=== PATIENT | male | born 1955 | race Caucasian/White ===

== ENCOUNTER 2021-01-04 18:21 | Emergency (ER) | payer MEDICARE, OTHER ==
[2021-01-04] MEDS ORDERED: Sodium Chloride 0.9% 10 ML Syringe FLUSH PRN (18:26)
[2021-01-04] MEDS ORDERED: Lactated Ringers 1,000 ML IV SCH (18:30)
--- NOTE | 2021-01-04 19:20 | EDM.PDOC ---
ED HPI GENERAL MEDICAL PROBLEM - General Chief Complaint: Possible Sepsis Stated Complaint: MEDICAL Time Seen by Provider: 01/04/21 18:25 Source of Information: Reports: Patient, Family History Limitations: Reports: Respiratory Distress - History of Present Illness INITIAL COMMENTS - FREE TEXT/NARRATIVE: Whit is a 65-year-old male presenting to the ED for evaluation of respiratory failure, tachycardia, and cyanosis. The patient was recently diagnosed 2 weeks ago with a mass in his neck extending into the chest and back by Dr. Gambino at the [facility] He underwent a biopsy on Wednesday of the mass at [facility] showing squamous cell carcinoma and the mass in the right upper lung. The patient's son went to visit him today and found him sitting in a racheal ir blue from his chest to his head. The patient was in respiratory distress. The son loaded him in the car and drove immediately to the hospital. Upon arrival, the patient was brought to her room, started on oxygen and his initial SPO2 was only 75% on room air. He was placed on 2 L nasal cannula and was found to be tachycardic at 135. I initiated lab work for probable sepsis at 1830 hrs. - Related Data Allergies Allergy/AdvReac Type Severity Reaction Status Date / Time doxycycline Allergy Cannot Verified 01/04/21 19:16 Remember Home Meds: Home Meds Albuterol Sulfate [Albuterol Sulfate Hfa] 1 puff INH ASDIRECTED 01/04/21 [History] oxyCODONE HCl [oxyCODONE] 30 mg PO Q4H 01/04/21 [History] Social & Family History - Tobacco Use Tobacco Use Status *Q: Former Tobacco User Years of Tobacco use: 50 Packs/Tins Daily: 1 Used Tobacco, but Quit: No Tobacco Use Comment: quit smokinga couple of weeks ago Second Hand Smoke Exposure: Yes - Caffeine Use Caffeine Use: Reports: None - Recreational Drug Use Recreational Drug Use: No ED ROS GENERAL - Review of Systems Review Of Systems: Unable To Obtain Reason Not Obtained: Respiratory distress Respiratory: Reports: Shortness of Breath, Wheezing, Cough, Other (Found to have a chest mass that is currently being worked up. Biopsy show squamous cell carcinoma.) Cardiovascular: Reports: Chest Pain Endocrine: Reports: Fatigue ED EXAM, GENERAL - Physical Exam Exam: See Below Exam Limited By: Respiratory Distress General Appearance: Alert, Anxious, Moderate Distress, Cachetic Eye Exam: Bilateral Eye: PERRL Nose: Normal Inspection Throat/Mouth: No Airway Compromise, Other (Dry mucous membranes) Head: Atraumatic Neck: Normal Inspection Respiratory/Chest: Respiratory Distress, Rales (Bilateral greater on the right than the left), Rhonchi (I lateral greater on the right than the left), Accessory Muscle Use, Retractions, Prolonged Expiration, Other (Tachypnea respiratory rate of 38) Cardiovascular: Normal Peripheral Pulses, Regular Rate, Rhythm, No Murmur, Tachycardia Peripheral Pulses: 2+: Radial (L), Radial (R), Posterior Tibial (L), Posterior Tibial (R) GI/Abdominal: Normal Bowel Sounds, Soft, Non-Tender Back Exam: Normal Inspection Extremities: Normal Range of Motion, No Pedal Edema, Pallor Neurological: Alert, No Motor/Sensory Deficits, Inattentive Psychiatric: Anxious Skin Exam: Pallor Course - Vital Signs Last Recorded V/S: Last Vital Signs Temp 36.6 C 01/04/21 18:47 Pulse 136 H 01/04/21 18:47 Resp 19 01/04/21 18:47 BP 138/83 01/04/21 18:47 Pulse Ox 3 L 01/04/21 18:47 - Orders/Labs/Meds Orders: Active Orders 24 hr Category Date Time Status EKG Documentation Completion [RC] ASDIRECTED Care 01/04/21 18:27 Active Chest 1V Frontal [CR] Stat Exams 01/04/21 18:26 Taken CULTURE BLOOD [BC] Urgent Lab 01/04/21 18:40 Received CULTURE BLOOD [BC] Urgent Lab 01/04/21 18:45 Received UA W/MICROSCOPIC [URIN] Stat Lab 01/04/21 18:26 Ordered Cefepime [Maxipime] 2 gm Med 01/04/21 19:55 Ordered Sodium Chloride 0.9% [Normal Saline] 50 ml IV ONETIME Lactated Ringers [Ringers, Lactated] 1,000 ml Med 01/04/21 18:30 Active IV ASDIRECTED Sodium Chloride 0.9% [Saline Flush] Med 01/04/21 18:26 Active 10 ml FLUSH ASDIRECTED PRN Blood Culture x2 Reflex Set [OM.PC] Urgent Oth 01/04/21 18:26 Ordered Isolation [COMM] Stat Oth 01/04/21 18:27 Ordered Saline Lock Insert [OM.PC] Routine Oth 01/04/21 18:26 Ordered EKG 12 Lead [EK] Routine Ther 01/04/21 18:26 Ordered Medication Orders Lactated Ringer's (Ringers, Lactated) 1,000 mls @ 999 mls/hr IV ASDIRECTED SHAGUFTA Last Admin: 01/04/21 18:34 Dose: 999 mls/hr Documented by: NICOLAS Cefepime HCl 2 gm/ Sodium (Chloride) 50 mls @ 100 mls/hr IV ONETIME ONE Stop: 01/04/21 20:24 Sodium Chloride (Sodium Chloride 0.9% 10 Ml Syringe) 10 ml FLUSH ASDIRECTED PRN PRN Reason: Keep Vein Open Last Admin: 01/04/21 18:35 Dose: 10 ml Documented by: NICOLAS Labs: Laboratory Tests 01/04/21 01/04/21 01/04/21 Range/Units 18:26 18:33 18:40 WBC 16.7 H (4.5-11.0) K/uL RBC 3.25 L (4.30-5.90) M/uL Hgb 9.8 L (12.0-15.0) g/dL Hct 31.3 L (40.0-54.0) % MCV 96 (80-98) fL MCH 30 (27-31) pg MCHC 31 L (32-36) % Plt Count 486 H (150-400) K/uL Neut % (Auto) 91.5 H (36-66) % Lymph % (Auto) 3.0 L (24-44) % [place] % (Auto) 5.4 (2-6) % Eos % (Auto) 0.0 L (2-4) % Baso % (Auto) 0.1 (0-1) % Puncture Site Rt radial ABG pH 7.380 (7.350-7.450) ABG pCO2 52.7 H (35.0-42.0) mmHg ABG pO2 68.9 L (75.0-100.0) mmHg ABG HCO3 30.4 H (22.0-26.0) mmol/L ABG Total CO2 28.2 H (23.0-27.0) mmol/L ABG O2 Saturation 92.2 L (95.0-98.0) % ABG O2 Content 13.4 L (15.0-23.0) %vol ABG Base Excess 4.9 mm/L ABG Hemoglobin 10.5 L (13.5-18.0) g/dL ABG Oxyhemoglobin 90.4 % ABG Carboxyhemoglobin 1.4 (0.0-1.6) % ABG Methemoglobin 0.6 % Rishabh Test Pass O2 Delivery Device Nasal cannula Oxygen Flow Rate 2.0 L Sodium (140-148) mmol/L Potassium (3.6-5.2) mmol/L Chloride (100-108) mmol/L Carbon Dioxide (21-32) mmol/L Anion Gap (5.0-14.0) mmol/L BUN (7-18) mg/dL Creatinine (0.8-1.3) mg/dL Est Cr Clr Drug Dosing Estimated GFR (MDRD) (>60) Glucose (74-106) mg/dL Lactic Acid (0.4-2.0) mmol/L Calcium (8.5-10.1) mg/dL Total Bilirubin (0.2-1.0) mg/dL AST (15-37) U/L ALT (12-78) U/L Alkaline Phosphatase (46-116) U/L Troponin I (0.000-0.056) ng/mL Total Protein (6.4-8.2) g/dL Albumin (3.4-5.0) g/dL Globulin (2.3-3.5) g/dL Albumin/Globulin Ratio (1.2-2.2) Influenza Type A RNA Negative (NEGATIVE) RSV RNA (INAAT) Negative (NEGATIVE) Influenza Type B RNA Negative (NEGATIVE) SARS-CoV-2 RNA (ROSENDA) Negative (NEGATIVE) 01/04/21 01/04/21 Range/Units 18:40 18:40 WBC (4.5-11.0) K/uL RBC (4.30-5.90) M/uL Hgb (12.0-15.0) g/dL Hct (40.0-54.0) % MCV (80-98) fL MCH (27-31) pg MCHC (32-36) % Plt Count (150-400) K/uL Neut % (Auto) (36-66) % Lymph % (Auto) (24-44) % [place] % (Auto) (2-6) % Eos % (Auto) (2-4) % Baso % (Auto) (0-1) % Puncture Site ABG pH (7.350-7.450) ABG pCO2 (35.0-42.0) mmHg ABG pO2 (75.0-100.0) mmHg ABG HCO3 (22.0-26.0) mmol/L ABG Total CO2 (23.0-27.0) mmol/L ABG O2 Saturation (95.0-98.0) % ABG O2 Content (15.0-23.0) %vol ABG Base Excess mm/L ABG Hemoglobin (13.5-18.0) g/dL ABG Oxyhemoglobin % ABG Carboxyhemoglobin (0.0-1.6) % ABG Methemoglobin % Rishabh Test O2 Delivery Device Oxygen Flow Rate L Sodium 140 (140-148) mmol/L Potassium 3.5 L (3.6-5.2) mmol/L Chloride 99 L (100-108) mmol/L Carbon Dioxide 31 (21-32) mmol/L Anion Gap 13.5 (5.0-14.0) mmol/L BUN 24 H (7-18) mg/dL Creatinine 0.8 (0.8-1.3) mg/dL Est Cr Clr Drug Dosing TNP Estimated GFR (MDRD) > 60 (>60) Glucose 161 H (74-106) mg/dL Lactic Acid 1.3 (0.4-2.0) mmol/L Calcium 11.4 H (8.5-10.1) mg/dL Total Bilirubin 0.5 (0.2-1.0) mg/dL AST 39 H (15-37) U/L ALT 64 (12-78) U/L Alkaline Phosphatase 160 H (46-116) U/L Troponin I < 0.017 (0.000-0.056) ng/mL Total Protein 8.8 H (6.4-8.2) g/dL Albumin 2.6 L (3.4-5.0) g/dL Globulin 6.2 H (2.3-3.5) g/dL Albumin/Globulin Ratio 0.4 L (1.2-2.2) Influenza Type A RNA (NEGATIVE) RSV RNA (INAAT) (NEGATIVE) Influenza Type B RNA (NEGATIVE) SARS-CoV-2 RNA (ROSENDA) (NEGATIVE) Meds: Medications Generic Name Dose Route Start Last Admin Trade Name Freq PRN Reason Stop Dose Admin Lactated Ringer's 1,000 mls @ 999 mls/hr 01/04/21 18:30 01/04/21 18:34 Ringers, Lactated IV 999 mls/hr ASDIRECTED SHAGUFTA Administration Cefepime HCl 2 gm/ Sodium 50 mls @ 100 mls/hr 01/04/21 19:55 Chloride IV 01/04/21 20:24 ONETIME ONE Sodium Chloride 10 ml 01/04/21 18:26 01/04/21 18:35 Sodium Chloride 0.9% 10 Ml Syringe FLUSH 10 ml ASDIRECTED PRN Administration Keep Vein Open - Radiology Interpretation Free Text/Narrative:: I reviewed the 1 view chest x-ray showing a right upper lobe/mediastinal mass remains unchanged when compared to the recent CT of the chest. There is a small amount of haziness in the left base which could be indication of early pneumonia. Normal cardiac silhouette. - Re-Assessments/Exams Free Text/Narrative Re-Assessment/Exam: 01/04/21 19:59 I reviewed the patient's labs showing a leukocyte count of 16.7 with 91% neutrophils. Hemoglobin of 9.8 with hematocrit of 31.3 and a platelet count of 486,000. Comprehensive metabolic panel is significant for potassium 3.5, chloride of 99, bicarbonate of 31, BUN of 24, with a creatinine of 0.8 and a glucose of 161. Patient is volume contracted with a BUN to creatinine ratio much greater than 20. Arterial blood gas was obtained on 2 L nasal cannula showing a pH of 7.38, PCO2 of 53, PO2 of 69, and a bicarb of 30. Venous lactate was obtained and is 1.4. The patient is negative for COVID-19, influenza AMB, and RSV. Before we had the lactate back, we initiated sepsis protocol based on the patient's heart rate of 135, hypoxia of 75% on room air, tachypnea of 38 rasps per minute. Patient did receive cefepime 2 g IV. Blood cultures have been obtained. Has not produced any urine for us to be able to assess urinalysis at this time. Multiple issues of come up with talking with the patient's son including the patient having recurring falls. The patient does live by himself and cannot be observed continuously. When is son found him this today he was not wearing his oxygen and was quite cyanotic and unresponsive. The patient does wear oxygen at home. There is a significant concern about the patient's wellbeing living by himself at home. Family would also like to transfer the patient so that the assessment by oncology and initiation of therapy may begin sooner rather than later. I discussed the case with Dr. Bah from the emergency room at [facility] who accepts the patient in transfer for further evaluation and care. As the patient is not requiring any advanced airway adjuvant at this time, he can go by ground ambulance on nasal cannula oxygen. Departure - Departure Time of Disposition: 20:03 Disposition: DC/Tfer to [facility] 02 Clinical Impression: Hypercapnia, Hypoxia, Hypochloremia, Hypokalemia Respiratory failure Qualifiers: Chronicity: acute on chronic Respiratory failure complication: hypoxia and hyp ercapnia Qualified Code(s): J96.21 - Acute and chronic respiratory failure with hypoxia; J96.22 - Acute and chronic respiratory failure with hypercapnia Squamous cell carcinoma of lung Qualifiers: Laterality: right Qualified Code(s): C34.91 - Malignant neoplasm of unspecified part of right bronchus or lung COPD (chronic obstructive pulmonary disease) Qualifiers: COPD type: unspecified COPD Qualified Code(s): J44.9 - Chronic obstructive pulmonary disease, unspecified - Discharge Information Referrals: Adolfo Gambino MD [Primary Care Provider] - Forms: ED Department Discharge Sepsis Event Note (ED) - Evaluation Sepsis Screening Result: No Definite Risk - Focused Exam Vital Signs: Vital Signs Temp Pulse Resp BP Pulse Ox 01/04/21 18:47 36.6 C 136 H 19 138/83 3 L - Problem List & Annotations (1) COPD (chronic obstructive pulmonary disease) SNOMED Code(s): 28759889 Code(s): J44.9 - CHRONIC OBSTRUCTIVE PULMONARY DISEASE, UNSPECIFIED Status: Chronic Priority: High Current Visit: Yes Qualifiers: COPD type: unspecified COPD Qualified Code(s): J44.9 - Chronic obstructive pulmonary disease, unspecified (2) Hypercapnia SNOMED Code(s): 60752486 Code(s): R06.89 - OTHER ABNORMALITIES OF BREATHING Status: Acute Priority: High Current Visit: Yes (3) Hypoxia SNOMED Code(s): 130370035 Code(s): R09.02 - HYPOXEMIA Status: Acute Priority: High Current Visit: Yes (4) Respiratory failure SNOMED Code(s): 342635710 Code(s): J96.90 - RESPIRATORY FAILURE, UNSP, UNSP W HYPOXIA OR HYPERCAPNIA Status: Acute Priority: High Current Visit: Yes Qualifiers: Chronicity: acute on chronic Respiratory failure complication: hypoxia and hypercapnia Qualified Code(s): J96.21 - Acute and chronic respiratory failure with hypoxia; J96.22 - Acute and chronic respiratory failure with hypercapnia (5) Squamous cell carcinoma of lung SNOMED Code(s): 151721874, 821798554 Code(s): C34.90 - MALIGNANT NEOPLASM OF UNSP PART OF UNSP BRONCHUS OR LUNG Status: Acute Priority: High Current Visit: Yes Qualifiers: Laterality: right Qualified Code(s): C34.91 - Malignant neoplasm of unspecified part of right bronchus or lung (6) Hypochloremia SNOMED Code(s): 43437087 Code(s): E87.8 - OTH DISORDERS OF ELECTROLYTE AND FLUID BALANCE, NEC Status: Acute Priority: High Current Visit: Yes (7) Hypokalemia SNOMED Code(s): 43757479 Code(s): E87.6 - HYPOKALEMIA Status: Acute Priority: High Current Visit: Yes - Problem List Review Problem List Initiated/Reviewed/Updated: Yes - My Orders Last 24 Hours: My Active Orders 01/04/21 18:26 Chest 1V Frontal [CR] Stat UA W/MICROSCOPIC [URIN] Stat Sodium Chloride 0.9% [Saline Flush] 10 ml FLUSH ASDIRECTED PRN Blood Culture x2 Reflex Set [OM.PC] Urgent Saline Lock Insert [OM.PC] Routine EKG 12 Lead [EK] Routine 01/04/21 18:27 EKG Documentation Completion [RC] ASDIRECTED Isolation [COMM] Stat 01/04/21 18:30 Lactated Ringers [Ringers, Lactated] 1,000 ml IV ASDIRECTED 01/04/21 18:40 CULTURE BLOOD [BC] Urgent 01/04/21 18:45 CULTURE BLOOD [BC] Urgent 01/04/21 19:55 Cefepime [Maxipime] 2 gm Sodium Chloride 0.9% [Normal Saline] 50 ml IV ONETIME - Assessment/Plan Last 24 Hours: My Active Orders 01/04/21 18:26 Chest 1V Frontal [CR] Stat UA W/MICROSCOPIC [URIN] Stat Sodium Chloride 0.9% [Saline Flush] 10 ml FLUSH ASDIRECTED PRN Blood Culture x2 Reflex Set [OM.PC] Urgent Saline Lock Insert [OM.PC] Routine EKG 12 Lead [EK] Routine 01/04/21 18:27 EKG Documentation Completion [RC] ASDIRECTED Isolation [COMM] Stat 01/04/21 18:30 Lactated Ringers [Ringers, Lactated] 1,000 ml IV ASDIRECTED 01/04/21 18:40 CULTURE BLOOD [BC] Urgent 01/04/21 18:45 CULTURE BLOOD [BC] Urgent 01/04/21 19:55 Cefepime [Maxipime] 2 gm Sodium Chloride 0.9% [Normal Saline] 50 ml IV ONETIME
[2021-01-04 19:30] LABS: CORONAVIRUS COVID-19 NAA NEGATIVE (NEGATIVE)
[2021-01-04] MEDS ORDERED: Cefepime 2 GM in Sodium Chloride 0.9% 50 ML IV ONE (19:55)
[2021-01-04] MEDS ORDERED: Sodium Chloride 0.9% 50 ML ONE (20:27)
[2021-01-04] MEDS ORDERED: Cefepime 1 GM Vial ONE (20:27)
[2021-01-04] MEDS ORDERED: oxyCODONE 5 MG Tab PO ONE (21:41)
[2021-01-04] MEDS ORDERED: HYDROmorphone 1 MG/ML Syringe IVPUSH ONE (23:10)
--- NOTE | 2021-01-06 14:52 | CR ---
CHEST: Portable 01/04/2021 at 7:18 PM CLINICAL HISTORY:Dyspnea COMPARISON:CT 12/24/2020 FINDINGS: There is a superior mediastinal mass which is described on prior CT. There is some patchy density in the left lung base. This is new since prior study. Lungs are emphysematous. Impression: Known superior mediastinal mass Patchy infiltrate in the left lower lobe is new since 12/24/2020 and is suspect for pneumonia
== END 2021-01-04 23:17 ==
LOC: JP.ED 18:21
DX: J96.21 Acute and chronic respiratory failure with hypoxia (principal); J96.22 Acute and chronic respiratory failure with hypercapnia; C34.91 Malignant neoplasm of unspecified part of right bronchus or lung; J44.9 Chronic obstructive pulmonary disease, unspecified; E87.8 Other disorders of electrolyte and fluid balance, not elsewhere classified; E87.6 Hypokalemia; Z20.822 Contact with and (suspected) exposure to COVID-19; Z88.1 Allergy status to other antibiotic agents; Z87.891 Personal history of nicotine dependence
CPT/HCPCS: 0241U; 36415; 36600; 71045; 80053; 81001; 82803; 83605; 84484; 85025; 87040; 93005; 96365; 96375; 99285; A9270; J0692; J1170; J7120